=== PATIENT | male | born 1970 | race Caucasian/White ===

== ENCOUNTER → 2021-05-25 01:57 | Outpatient (CLI) | payer OTHER, SELFPAY ==
[2021-05-25 17:54] LABS: SARS-CoV-2 RNA PCR Negative
== END ==
PROVIDERS: PCP Physician Assistant; Visit Provider Internal Medicine Gastroenterology
DX: Z01.812 Encounter for preprocedural laboratory examination (principal); Z20.822 Contact with and (suspected) exposure to COVID-19
CPT/HCPCS: C9803; U0003; U0005

== ENCOUNTER 2021-05-28 00:35 | Day surgery (SDC) | payer OTHER, SELFPAY ==
[2021-05-10 10:03] VITALS: BMI 32.8
[2021-05-28] VITALS (10 sets, daily range): BP systolic 112–134; BP diastolic 59–88; PULSE 58–108; RESP 16–25; TEMP 36.1; O2SAT 95–100; BMI 32.9
[2021-05-28] MEDS: LACTATED RINGERS 1,000 ML 150 ML IV CONT (06:59)
[2021-05-28 07:07] LABS: Glucose Point of Care 211 mg/dl (65-105)
--- NOTE | 2021-05-28 07:54 | P.PNAN_ITS ---
Anes - Initial Pre Proc Eval Procedure: Operation Date: 05/28/21 08:00 Proposed Procedures p Screening Colonoscopy - Jordan Maki MD Date/Time: 05/28/21 07:54 Surgeon: Jordan Maki MD Pre Op Diagnosis: neoplasm screening Patient Data Age: 50 Gender: M Height: 1.8 m Weight: 107.2 kg Last Vital Signs Temp 96.9 F L 05/28/21 06:46 Pulse 58 L 05/28/21 06:46 Resp 16 05/28/21 06:46 BP 134/72 05/28/21 06:46 Pulse Ox 100 05/28/21 06:46 Allergies Allergy/AdvReac Type Severity Reaction Status Date / Time amoxicillin Allergy Intermediate Hives Verified 05/28/21 06:45 Penicillins Allergy Intermediate Hives Verified 05/28/21 06:45 Home Medications Medication Instructions Recorded Confirmed Type multivitamin 1 tablet PO DAILY 09/04/20 05/28/21 History omega-3 fatty acids 1,000 mg 1,000 mg PO DAILY 09/04/20 05/28/21 History capsule atorvastatin 10 mg tablet 10 mg PO DAILY #90 tablet 11/22/20 05/28/21 Rx hydrochlorothiazide 25 mg tablet 25 mg PO DAILY #90 tablet 11/22/20 05/28/21 Rx metformin 1,000 mg tablet 1,000 mg PO BID #180 tablet 11/22/20 05/28/21 Rx nifedipine 90 mg tablet,extended 90 mg PO DAILY #90 tablet 11/25/20 05/28/21 Rx release tadalafil 20 mg tablet 20 mg PO DAILY PRN #10 tablet 01/17/21 05/28/21 Rx gemfibrozil 600 mg tablet 600 mg PO DAILY #90 tablet 03/08/21 05/28/21 Rx testosterone cypionate 200 mg/mL 200 mg IM .q2w #6 ml 03/11/21 05/28/21 Rx intramuscular oil dulaglutide 1.5 mg/0.5 mL 1.5 mg SUBCUT WEEKLY #6 ml 04/01/21 05/28/21 Rx subcutaneous pen injector nebivolol [Bystolic] 10 mg PO QPM 05/25/21 05/28/21 History Laboratory Tests 05/28/21 07:01 POC Capillary Glucose 211 mg/dl H mg/dl (65-105) Patient hx anesthesia problems: none Family hx anesthesia problems: none Results Review: All pre-operative results and documents have been reviewed as part of the pre-operative evaluation. [facility] Past Medical History Medical History Diabetes Hypertension Social History Social History Smoking status: Never smoker Alcohol intake: current Substance use: never Substance use type: does not use Living arrangements: with family Spiritual care concerns: No Anes - Eval Final PreProcedure Day of Procedure 05/28/21 07:54 Patient weight: obese Heart: irregular rhythm Lungs: clear to auscultation Airway: Mallampati scale Last oral intake: >/= 8 hours ASA classification: III Emergent: no Anesthetic plan: proceed Anesthesia type and monitoring: general GIVS and standard monitoring Results Review: All pre-operative results and documents have been reviewed as part of the pre-operative evaluation. Informed Consent: The patient's anesthetic plan and its attendant risks and benefits were discussed with the patient/family/POA. Questions were solicited and answers provided to the satisfaction of the patient/family/POA.
--- NOTE | 2021-05-28 07:54 | WPDGICN ---
Assessment and Plan Assessment and plan (1) Encounter for screening colonoscopy: Code(s): Z12.11 - Encounter for screening for malignant neoplasm of colon Status: Acute Assessment and Plan: Patient presents for screening colonoscopy. Patient's current weight appetite bowel movements are normal. He denies abdominal pain. Surveillance colonoscopy advised because of his age. GI Consult Note Consult date/time: 05/28/21 07:54 HPI: Bg Dia is a 50 year old male Presents for screening colonoscopy. Patient reports that his current weight appetite bowel movements normal. Patient denies abdominal pain. He has had no bleeding. Family history is noncontributory. Review of Systems Review of Systems: All systems reviewed & are unremarkable except as noted in HPI and below PMFSH Past Medical History Medical History Diabetes Hypertension Social History Social History Smoking status: Never smoker Alcohol intake: current Substance use: never Substance use type: does not use Living arrangements: with family Spiritual care concerns: No Meds Home Medications and Allergies Home Medications Medication Instructions Recorded Confirmed Type multivitamin 1 tablet PO DAILY 09/04/20 05/28/21 History omega-3 fatty acids 1,000 mg 1,000 mg PO DAILY 09/04/20 05/28/21 History capsule atorvastatin 10 mg tablet 10 mg PO DAILY #90 tablet 11/22/20 05/28/21 Rx hydrochlorothiazide 25 mg tablet 25 mg PO DAILY #90 tablet 11/22/20 05/28/21 Rx metformin 1,000 mg tablet 1,000 mg PO BID #180 tablet 11/22/20 05/28/21 Rx nifedipine 90 mg tablet,extended 90 mg PO DAILY #90 tablet 11/25/20 05/28/21 Rx release tadalafil 20 mg tablet 20 mg PO DAILY PRN #10 tablet 01/17/21 05/28/21 Rx gemfibrozil 600 mg tablet 600 mg PO DAILY #90 tablet 03/08/21 05/28/21 Rx testosterone cypionate 200 mg/mL 200 mg IM .q2w #6 ml 03/11/21 05/28/21 Rx intramuscular oil dulaglutide 1.5 mg/0.5 mL 1.5 mg SUBCUT WEEKLY #6 ml 04/01/21 05/28/21 Rx subcutaneous pen injector nebivolol [Bystolic] 10 mg PO QPM 05/25/21 05/28/21 History Allergies Allergy/AdvReac Type Severity Reaction Status Date / Time amoxicillin Allergy Intermediate Hives Verified 05/28/21 06:45 Penicillins Allergy Intermediate Hives Verified 05/28/21 06:45 Vital Signs Vital Signs - 24 hr 05/28/21 06:46 Temperature 96.9 F L Pulse Rate 58 L Respiratory Rate 16 Blood Pressure 134/72 Pulse Oximetry 100 Exam Narrative: Physical exam reveals patient to be alert. Vital signs stable. HEENT exam is unremarkable. Patient is anicteric. Lungs are clear to auscultation and percussion. Heart is without murmur or extra sounds. Abdominal exam bowel sounds are present soft nontender with no organomegaly. Digital external rectal exam is normal.
--- NOTE | 2021-05-28 08:11 | ECG_ITS ---
Measurements Intervals [place] Rate: 91 P: ND: 0 QRS: 16 QRSD: 93 T: 15 QT: 367 QTc: 453 Interpretive Statements ATRIAL FIBRILLATION NONSPECIFIC T-WAVE ABNORMALITY- INFERIOR LEADS BASELINE ARTIFACT- I, II, III, AVR, AVL, AVF, V1-V6 ABNORMAL ECG Electronically Signed On 05-28-2021 8:36:08 CHILD GUIDANCE COUNSELOR by Sandoval Harmon D.O.
--- NOTE | 2021-05-28 08:34 | SUR.PHASEII ---
pt resented to recovery with a new onset afib today onset during his procedure. cardiology was consulted and is at bedside now 0835. pt denies any cp or sob hr in low 100s
--- NOTE | 2021-05-28 09:01 | SUR.PHASEII ---
the pediatrician/medical doctor md halley Melara left and said he was going to put in orders for blood work and add additional instructions to the discharge paperwork.
--- NOTE | 2021-05-28 09:19 | PM.CNCAR ---
Assessment and Plan Assessment and plan (1) Diabetes: Qualifiers: Diabetes mellitus type: type 2 Code(s): E11.9 - Type 2 diabetes mellitus without complications Status: Acute Assessment and Plan: continue meds (2) Hypertension: Qualifiers: Hypertension type: essential hypertension Qualified Code(s): I10 - Essential (primary) hypertension Code(s): I10 - Essential (primary) hypertension Status: Acute Assessment and Plan: Reasonably controlled. Continue current meds (3) Low testosterone: Code(s): R79.89 - Other specified abnormal findings of blood chemistry Status: Acute (4) Obesity (BMI 30-39.9): Code(s): E66.9 - Obesity, unspecified Status: Acute Assessment and Plan: dietary and lifestyle modifications for weight loss (5) Atrial fibrillation: Code(s): I48.91 - Unspecified atrial fibrillation Status: Acute Assessment and Plan: newly recognized. He did see his primary care provider in March with documented sinus rhythm at that time. He has a chads Vasc score of 2 and anticoagulation should be initiated. I did talk to him about the risks, benefits and alternatives of different anticoagulants including warfarin, Pradaxa, Eliquis and Xarelto. Will start him on Eliquis 5 mg p.o. b.i.d.. He has some hesitation about Xarelto in the past because of bleeding issues that his mother had. He verbalizes understanding of bleeding risk. His heart rate is reasonably controlled even though he has not taken his Bystolic at today. Will not change his other medications and will eventually have him scheduled for outpatient elective cardioversion if he remains in atrial fibrillation. 2D echocardiogram with Doppler will be ordered and reviewed. Outpatient stress test also will be ordered and reviewed. Check a basic metabolic panel, magnesium level, TSH and T4 now. History of Present Illness History of Present Illness Consult date/time: 05/28/21 09:19 Requesting physician: Brett Batres MD Consult reason: atrial fibrillation Reason For Visit: neoplasm screening Narrative: Date of service 05/28/2021 Reason consultationAtrial fibrillation requesting provider: Dr. Batres ial fibrillation history History: patient is a 50-year-old male who has no previous cardiac or atrial arrhythmia. He was up hospital today for a screening colonoscopy and was found to be in atrial fibrillation while initially being put on monitor. EKG did confirm atrial fibrillation. Heart rate generally controlled. He denies any chest pain, shortness breath, syncope, presyncope, paroxysmal nocturnal dyspnea, orthopnea, edema palpitations. He does have a history of edema which has since resolved with the addition of Bystolic And other medications. He does not snore significantly . No Polypectomy was performed today. he has no bleeding problems. Review of Systems Review of Systems: All systems reviewed & are unremarkable except as noted in HPI and below Constitutional: Constitutional: Denies weakness Eyes: Eyes: Denies blurry vision ENT: Reports Normal hearing present Cardiovascular: Cardiovascular: Denies chest pain and Reports pedal edema Respiratory: Respiratory: Denies dyspnea Gastrointestinal: Gastrointestinal: Denies abdominal pain and Denies bloating Genitourinary: Genitourinary: Denies dysuria Musculoskeletal: Musculoskeletal: Denies neck pain Integumentary/Breasts: Skin/Breast: Denies dry skin Neurologic: Denies headache(s) and Denies numbness Psychiatric: Psychiatric: Denies no additional psychiatric complaints Endocrine: Endocrine: Denies excessive sweating Hematologic/Lymphatic: Hematologic/Lymphatic: Denies easy bleeding Allergic/Immunologic: Allergic/Immunologic: Denies GI upset with certain foods PMFSH Past Medical History Medical History (Updated 05/28/21 @ 09:27 by Kurtis Melara MD) Atrial fibri
[2021-05-28 09:58] LABS: Anion Gap 9 mmol/L (8-16); Blood Urea Nitrogen 13 mg/dL (9-20); Calcium 9.9 mg/dL (8.4-10.2); Carbon Dioxide 29 mmol/L (22-30); Chloride 93 mmol/L (98-107); Estimated CRCL calculation 105 ml/min; Estimated Glomerular Filt Rate > 60; Glucose 181 mg/dL (65-110); Potassium 3.8 mmol/L (3.4-5.0); Sodium 131 mmol/L (137-145)
== END 2021-05-28 09:50 | disposition home or self-care (01) ==
PROVIDERS: Internal Medicine Cardiovascular Disease; PCP Physician Assistant; Visit Provider Internal Medicine Gastroenterology
PROC: 0DJD8ZZ Inspection of Lower Intestinal Tract, Via Natural or Artificial Opening Endoscopic (ICD-10-PCS; CPT 45378; principal; 2021-05-28 08:00)
DX: Z12.11 Encounter for screening for malignant neoplasm of colon (principal); K64.8 Other hemorrhoids; E11.9 Type 2 diabetes mellitus without complications; I10 Essential (primary) hypertension; Z79.01 Long term (current) use of anticoagulants; Z79.84 Long term (current) use of oral hypoglycemic drugs; R79.89 Other specified abnormal findings of blood chemistry; I48.91 Unspecified atrial fibrillation; E66.9 Obesity, unspecified; Z68.33 Body mass index [BMI] 33.0-33.9, adult
CPT/HCPCS: 45378; 36415; 80048; 82948; 83735; 84436; 84443; 93005; C9803; J2704; J7120; U0003; U0005

== ENCOUNTER 2023-09-27 12:49 | Outpatient (CLI) | payer OTHER, SELFPAY ==
[2023-09-27 13:29] LABS: Basophils Absolute Auto 0.07 K/mm3 (0.00-0.10); Basophils Percent Auto 0.9 % (0.0-1.0); Eosinophils Absolute Auto 0.17 K/mm3 (0.02-0.50); Eosinophils Percent Auto 2.2 % (1.0-6.0); Hematocrit 47.9 % (40.0-54.0); Immature Granulocyte Absolute 0.05 K/mm3 (0.00-0.00); Immature Granulocyte Percent A 0.6 % (0.0-0.0); Lymphocytes Absolute Auto 1.84 K/mm3 (1.10-4.50); Lymphocytes Percent Auto 23.7 % (18.0-42.0); Mean Corpuscular HGB Conc 35.5 g/dL (32-36); Mean Corpuscular Hemoglobin 31.5 pg (27.0-31.0); Mean Corpuscular Volume 88.7 fL (78.0-102.0); Mean Platelet Volume 10.1 fl (8.7-11.0); Monocytes Absolute Auto 0.76 K/mm3 (0.10-0.90); Monocytes Percent Auto 9.8 % (2.0-11.0); Neutrophils Absolute Auto 4.87 K/mm3 (1.70-7.20); Neutrophils Percent Auto 62.8 % (50.0-70.0); Platelet Count Result 256 K/mm3 (150-420); Red Cell Distribution Width 12.7 % (11.6-14.4); White Blood Count 7.8 K/mm3 (4.8-10.8)
== END 2023-09-27 12:50 | disposition home or self-care (01) ==
PROVIDERS: PCP Internal Medicine; Visit Provider Internal Medicine
DX: D75.1 Secondary polycythemia (principal)
CPT/HCPCS: 36415; 85025

== ENCOUNTER 2025-02-16 09:13 | Outpatient (CLI) | payer OTHER, SELFPAY ==
--- NOTE | ~2025-02-16 | US_ITS ---
US abdomen limited INDICATION: Abnormal laboratory values PROCEDURE: Realtime right upper abdominal ultrasound. COMPARISON: No prior studies for comparison. FINDINGS: Pancreas is obscured by bowel gas and fatty liver. Liver echotexture is diffusely increased, consistent with fatty infiltration. There is normal directional flow in the portal vein. The gallbladder is normal without stones, gallbladder wall thickening or pericholecystic fluid. Common bile duct measures 4 mm. No sonographic Gonsalves's sign. IMPRESSION: 1: Fatty infiltration of the liver. Reviewed, dictated and finalized at location O.
== END 2025-02-16 09:14 | disposition home or self-care (01) ==
LOC: GOSHIMG 09:14
PROVIDERS: PCP Internal Medicine; Visit Provider Internal Medicine
DX: R79.89 Other specified abnormal findings of blood chemistry (principal); K76.0 Fatty (change of) liver, not elsewhere classified
CPT/HCPCS: 76705